=== PATIENT | male | born 1965 | race Hispanic/Latino ===

== ENCOUNTER → 2017-09-02 | Outpatient (CLI) | payer OTHER ==
[~2017-09-02] MED LIST: COLACE100 MG PO; FINASTERIDE5 MG PO; FLOMAX0.4 MG PO; TYLENOL WITH C1 EACH PO
--- NOTE | 2017-09-02 10:00 | Diagnostic Imaging Report ---
PROCEDURE:CHEST 2 VIEWS TECHNIQUE:PA and lateral chest INDICATION:7 months post nephrectomy evaluation. COMPARISON:Patients [facility], , CHEST 2 VIEWS, 05/03/2017, 9:40. FINDINGS: Lungs are clear and symmetrically inflated. No pleural effusions. Normal heart size, mediastinal contour, and pulmonary vasculature. Intact skeleton. CONCLUSION: Stable normal chest. Dictated by: Anuj Huertas M.D. on 09/02/2017 at 10:08 Electronically approved by: Anuj Huertas M.D. on 09/02/2017 at 10:08
--- NOTE | 2017-09-02 10:55 | Diagnostic Imaging Report ---
PROCEDURE:US RETROPERITONEAL ( KIDNEY ). COMPARISON:Patients [facility], US, kidney, 05/03/2017, 9:36. INDICATIONS:Malignant neoplasm of kidney TECHNIQUE: Caballero scale color Doppler ultrasound FINDINGS: Right: 12.2 x 5.4 x 5.5 cm. Cortical thickness 2.2 cm. Left: Nephrectomy Normal right kidney. Unremarkable left renal fossa. Unremarkable urinary bladder. Prostate volume: 43 mL (4.5 x 3.8 x 4.8 cm). CONCLUSION: 1. Normal right kidney. 2. Left nephrectomy. 3. Mild prostatomegaly. Dictated by: Anuj Huertas M.D. on 09/02/2017 at 11:03 Electronically approved by: Anuj Huertas M.D. on 09/02/2017 at 11:03
== END ==
LOC: US 09:39
PROVIDERS: ATTEND Urology
DX: C64.2 Malignant neoplasm of left kidney, except renal pelvis (principal); N18.9 Chronic kidney disease, unspecified
CPT/HCPCS: 71020; 76770

== ENCOUNTER → 2018-02-03 | Outpatient (CLI) | payer OTHER ==
--- NOTE | 2018-02-03 10:31 | Diagnostic Imaging Report ---
PROCEDURE: X-RAY CHEST, TWO VIEWS COMPARISON: None. INDICATIONS: 1 YEAR FOLLOW UP FOR RENAL CANCER SURGERY. DENIES COMPLAINTS FINDINGS: LUNGS: No consolidations or edema. No pulmonary nodules. PLEURA: No effusions or pneumothorax. HEART \T\ MEDIASTINUM: The heart is within normal size-limits. BONES \T\ SOFT TISSUES: No acute findings. CONCLUSION: No acute thoracic abnormality. Bc Jama D.O. Dictated by: Bc Jama D.O. on 02/03/2018 at 10:34 Electronically approved by: Bc Jama D.O. on 02/03/2018 at 10:34
--- NOTE | 2018-02-03 11:36 | Diagnostic Imaging Report ---
PROCEDURE:US RETROPERITONEAL ( KIDNEY ). COMPARISON:Patients [facility], US, US RETROPERITONEAL ( KIDNEY )., 09/02/2017, 10:06. INDICATIONS:Malignant Neoplasm Of Kidney TECHNIQUE: Turpin-scale and color sonographic images of the bilateral kidneys and bladder where obtained in transverse and longitudinal planes. FINDINGS: RIGHT KIDNEY: 12.7 cm, cortex 2.0 cm Cysts: None Solid masses: None Stones: None Hydronephrosis: None Echogenicity: Normal LEFT KIDNEY: Absent, consistent with prior nephrectomy. No echogenic soft tissue is noted in the left renal fossa. Bladder: No focal lesions. Right ureteral jet is identified. Prostate: 3.6 x 4.7 x 5.0 cm (estimated volume 31.9 CC). CONCLUSION: 1. Status post left nephrectomy, without sonographic evidence of residual or recurrent disease. 2. Mild prostatomegaly, which may be due to BPH. Shahid Copeland M.D. Dictated by: Shahid Copeland M.D. on 02/03/2018 at 11:38 Electronically approved by: Shahid Copeland M.D. on 02/03/2018 at 11:38
== END ==
LOC: US 09:29
PROVIDERS: ATTEND Urology
DX: C64.2 Malignant neoplasm of left kidney, except renal pelvis (principal)
CPT/HCPCS: 71046; 76770

== ENCOUNTER → 2018-05-09 | Outpatient (CLI) | payer OTHER ==
--- NOTE | 2018-05-09 11:18 | Diagnostic Imaging Report ---
PROCEDURE: Frontal and lateral views of the chest. COMPARISON: 02/03/18 INDICATIONS: FOLLOW UP RENAL CANCER FINDINGS: Lines/tubes: None. Lungs: The lungs are well inflated and clear. There is no evidence of pneumonia or pulmonary edema. Pleura: There is no pleural effusion or pneumothorax. Heart and mediastinum: The heart and the mediastinum are normal. Bones: No acute bony abnormality. IMPRESSION: 1. No acute cardiopulmonary disease. Dictated by: Steffen Murguia M.D. on 05/09/2018 at 11:25 Electronically approved by: Steffen Murguia M.D. on 05/09/2018 at 11:25
--- NOTE | 2018-05-09 11:47 | Diagnostic Imaging Report ---
EXAM: Renal Ultrasound INDICATION: \S\NEOPLASM OF KIDNEY COMPARISON: Renal ultrasound dated 02/03/2018 TECHNIQUE: Transverse and longitudinal images of the kidneys and bladder were obtained. FINDINGS: Right Kidney: Size: 12.9 cm Echogenicity: Normal Parenchymal thickness: Normal Collecting system: No hydronephrosis Stones: None Cyst/Mass: None Left Kidney: Surgically absent. Bladder: Right ureteral jet was seen. Prostate measures 3.9 x 3 x 4.1 cm (24.3 cc). IMPRESSION: Unremarkable right kidney. Status post left nephrectomy. Signed by: Dr. Steffen Murguia MD on 05/09/2018 11:44 AM
== END ==
LOC: US 10:02
PROVIDERS: ATTEND Urology
DX: D41.00 Neoplasm of uncertain behavior of unspecified kidney (principal)
CPT/HCPCS: 71046; 76770

== ENCOUNTER → 2019-06-05 | Outpatient (CLI) | payer OTHER ==
--- NOTE | 2019-06-05 12:05 | Diagnostic Imaging Report ---
EXAM: Renal Ultrasound INDICATION: ^[id number] ^[id number] ^MALIGNANT NEOPLASM OF LEFT KIDNEY COMPARISON: None TECHNIQUE: Transverse and longitudinal images of the kidneys and bladder were obtained. FINDINGS: Right Kidney: Length: 12.2 cm Appearance: Normal echogenicity. Collecting system: No hydronephrosis Stones: None Cyst/Mass: None Left Kidney: Status post left nephrectomy. Bladder: No mass or calculi. Right ureteral jet visualized. Prevoid volume estimate of 276.7 cc. The prostate appears unremarkable. Prostate volume estimate of 35.0 cc. IMPRESSION: Status post left nephrectomy. No renal calculi or hydronephrosis of the right kidney. Signed by: Hector Thompson MD on 06/05/2019 12:01 PM
--- NOTE | 2019-06-05 13:07 | Diagnostic Imaging Report ---
EXAMINATION: CHEST 2 VIEWS INDICATION: Renal malignancy COMPARISON: None FINDINGS: LINES/TUBES:None LUNGS:The lungs are well-inflated. No focal consolidation or pulmonary edema. PLEURA:No pleural effusion or pneumothorax. MEDIASTINUM:The cardiomediastinal silhouette appears normal in size and shape. BONES/SOFT TISSUES:No acute osseous injury. ABDOMEN:No free air under the diaphragm. IMPRESSION: No focal pneumonia or pulmonary edema. No radiographically apparent pulmonary nodules. Signed by: Hector Thompson MD on 06/05/2019 1:04 PM
== END ==
LOC: US 10:41
PROVIDERS: ATTEND Urology
DX: C64.2 Malignant neoplasm of left kidney, except renal pelvis (principal)
CPT/HCPCS: 71046; 76770

== ENCOUNTER → 2019-11-07 | Outpatient (CLI) | payer OTHER ==
--- NOTE | 2019-11-07 10:47 | Diagnostic Imaging Report ---
Exam: Chest radiograph Clinical History: Renal neoplasm Comparison: June 05, 2019 Findings: The cardiomediastinal silhouette and lungs are normal. The regional skeleton and soft tissue are unremarkable. There is no evidence of pleural effusion or pneumothorax. Impression: No radiographic evidence of acute cardiopulmonary disease. Signed by: Dr. Bruce Ruffin MD on 11/07/2019 10:45 AM
--- NOTE | 2019-11-07 11:46 | Diagnostic Imaging Report ---
Renal ultrasound Clinical History: Renal neoplasm Comparison: June 05, 2019 Discussion: Sonographic evaluation of the kidneys is performed. The right kidney has normal size and cortical echogenicity. The right kidney measures 11.5 cm in length. The patient is status post left nephrectomy. There is no focal renal mass, hydronephrosis, or shadowing renal calculus. No perinephric fluid collection is seen. Survey images of the bladder demonstrate no abnormality. Impression: 1. Status post left nephrectomy, otherwise, unremarkable renal ultrasound. Signed by: Dr. Bruce Ruffin MD on 11/07/2019 11:44 AM
== END ==
LOC: US 09:57
PROVIDERS: ATTEND Urology
DX: C64.2 Malignant neoplasm of left kidney, except renal pelvis (principal)
CPT/HCPCS: 71046; 76770

== ENCOUNTER → 2020-05-15 | Outpatient (CLI) | payer OTHER ==
--- NOTE | 2020-05-15 12:20 | Diagnostic Imaging Report ---
Exam: CHEST 2 VIEWS Date: 05/15/2020 12:16 PM INDICATION: ^[id number] ^[id number] ^MALIGNANT NEOPLASM OF LEFT KIDNEY Comparison: 11/07/2019 FINDINGS: Lines/Tubes:None Lungs:The lungs are well inflated. No focal consolidation or pulmonary edema. Pleura:No pleural effusion. No pneumothorax. Heart/Mediastinum:The cardiomediastinal silhouette is normal in size and contour. Bones/Soft Tissues: No acute osseous abnormality. Stable mild to moderate multilevel degenerative changes of the spine. Upper abdomen: Unremarkable. IMPRESSION: Negative for acute intrathoracic process. Signed by: Eleazar Esqueda MD on 05/15/2020 12:17 PM
--- NOTE | 2020-05-15 12:24 | Diagnostic Imaging Report ---
EXAM: Renal Ultrasound INDICATION: ^[id number] ^[id number] ^MALIGNANT NEOPLASM OF LEFT KIDNEY COMPARISON: 11/07/2019 TECHNIQUE: Transverse and longitudinal images of the kidneys and bladder were obtained. FINDINGS: Right Kidney: Length: 12.0 cm Appearance: Normal echogenicity. Collecting system: No hydronephrosis Stones: None Cyst/Mass: None Left Kidney: Surgically absent. Bladder: Unremarkable with a prevoid volume of 206 cc. The right ureteral jet is visualized. The prostate is unremarkable with a volume of 14.6 cc. IMPRESSION: Stable postsurgical changes from left nephrectomy. Signed by: Eleazar Esqueda MD on 05/15/2020 12:21 PM
== END ==
LOC: US 11:44
PROVIDERS: ATTEND Urology
DX: C64.2 Malignant neoplasm of left kidney, except renal pelvis (principal)
CPT/HCPCS: 71046; 76770

== ENCOUNTER → 2020-11-28 | Outpatient (CLI) | payer OTHER | LOC: US 07:46 | PROVIDERS: ATTEND Urology | DX: C64.2 Malignant neoplasm of left kidney, except renal pelvis (principal) | CPT/HCPCS: 71046; 76700; 76770 ==

== ENCOUNTER → 2021-06-23 | Outpatient (CLI) | payer OTHER | LOC: US 10:00 | PROVIDERS: ATTEND Urology | DX: C64.2 Malignant neoplasm of left kidney, except renal pelvis (principal) | CPT/HCPCS: 71046; 76770 ==

== ENCOUNTER → 2024-10-28 | Day surgery (SDC) | payer OTHER ==
[~2024-10-28] MED LIST changes: +CENTRUM ADULTS1 EACH PO; +FENTANYL CITRATE/PF 100MCG/2 ML INJ ONE; +FISH OIL 1,0001 EAC3; +HYOSCYAMINE SULFATE 0.5 MG/ML INJ ONE; +LIDOCAINE HCL 2% LOCAL INJ 5 ML SDV VIAL INJ ONE; +ONDANSETRON HCL INJ 2MG/ML 2ML 2 MG/ML VIAL ONE; +PROPOFOL IV EMULSION 10 MG/ML 20 ML VIAL ONE; +VITAMIN C1000 MG PO; +VITAMIN D31250 MCG
[2024-10-28] MEDS: LACTATED RINGER'S 1,000 ML ONE (08:36)
[2024-10-28 11:17] VITALS: BP 124/88; PULSE 74; RESP 18; O2SAT 99
== END | disposition home or self-care (01) ==
LOC: OR 07:51
PROVIDERS: ATTEND Internal Medicine Gastroenterology
DX: Z09 Encounter for follow-up examination after completed treatment for conditions other than malignant neoplasm (principal); Z86.0100 Personal history of colon polyps, unspecified; K52.9 Noninfective gastroenteritis and colitis, unspecified; K64.8 Other hemorrhoids; Z71.3 Dietary counseling and surveillance; E66.9 Obesity, unspecified; R03.0 Elevated blood-pressure reading, without diagnosis of hypertension; Z71.89 Other specified counseling; Z01.810 Encounter for preprocedural cardiovascular examination; Z68.33 Body mass index [BMI] 33.0-33.9, adult; Z86.19 Personal history of other infectious and parasitic diseases; Z90.5 Acquired absence of kidney
CPT/HCPCS: 45380; 93005; J1980; J2003; J2405; J2704; J3010; J7121; 45378

== ENCOUNTER → 2024-11-20 | Outpatient (REF) | payer OTHER ==
[~2024-11-20] MED LIST changes: -FENTANYL CITRATE/PF 100MCG/2 ML INJ ONE; -HYOSCYAMINE SULFATE 0.5 MG/ML INJ ONE; -LIDOCAINE HCL 2% LOCAL INJ 5 ML SDV VIAL INJ ONE; -ONDANSETRON HCL INJ 2MG/ML 2ML 2 MG/ML VIAL ONE; -PROPOFOL IV EMULSION 10 MG/ML 20 ML VIAL ONE
== END ==
LOC: US 09:40
PROVIDERS: ATTEND Urology
DX: C64.2 Malignant neoplasm of left kidney, except renal pelvis (principal); D41.01 Neoplasm of uncertain behavior of right kidney; N18.9 Chronic kidney disease, unspecified
CPT/HCPCS: 71046; 76770; 76857